=== PATIENT | female | born 1960 | race Caucasian/White ===

== ENCOUNTER 2019-12-04 11:38 | Emergency (ER) | payer MEDICARE, MEDICAID ==
[~2019-12-04] VITALS: Ht 162.6 cm; Wt 89.5 kg
[~2019-12-04 11:38] MED LIST: ACET325T57 PO; ACYC400T PO; ASPI-611 PO; ATOR20TA66 PO; CALC-1197 PO; CETI10TA15 PO; LISI40TA4 PO; LYSI500T3 PO; METF-950 PO; SALM1CAP4 PO; WALKERFR; ZOLP10TA5 PO
[2019-12-04 11:42] VITALS: BP 117/74
[2019-12-04 12:49] LABS: HEMOGLOBIN 14.6 g/dl (12.0-16.0); LYMPHOCYTES # (AUTO) 0.3 X10'3 (1.1-4.8); MEAN CORPUSCULAR HEMOGLOBIN 32.9 PG (27.0-31.0); MEAN CORPUSCULAR VOLUME 95.2 FL (78-98); WHITE BLOOD COUNT 3.6 X10'3 (4.5-11.0)
[2019-12-04 12:50] LABS: BASOPHILS % (AUTO) 0.4 % (0-1); EOSINOPHILS % (AUTO) 0.5 % (0-6); HEMATOCRIT 42.1 % (35.0-45.0); LYMPHOCYTES % (AUTO) 8.7 % (21-51); MEAN CORPUSCULAR HGB CONC 34.6 g/dL (33.0-36.5); MEAN PLATELET VOLUME 6.6 FL (7.4-10.4); MONOCYTES # (AUTO) 0.6 X10'3 (0-0.9); MONOCYTES % (AUTO) 16.6 % (2-12); NEUTROPHILS # (AUTO) 2.7 X10'3 (1.8-7.7); NEUTROPHILS % (AUTO) 73.8 % (42-75); PLATELET COUNT 231 X10'3 (140-440); RED BLOOD COUNT 4.43 X10'6 (4.20-5.60); RED CELL DISTRIBUTION WIDTH 13.5 % (11.5-14.5)
[2019-12-04 12:56] LABS: PARTIAL THROMBOPLASTIN TIME 30 SECONDS (22-32)
[2019-12-04 13:05] LABS: ALANINE AMINOTRANSFERASE 33 U/L (12-78); ALBUMIN 4.1 G/DL (3.4-5.0); ALBUMIN/GLOBULIN RATIO 1.3 (1.1-1.5); ALKALINE PHOSPHATASE 90 IU/L (46-116); ANION GAP 11 (8-16); ASPARTATE AMINO TRANSFERASE 25 U/L (10-37); BILIRUBIN,TOTAL 0.4 MG/DL (0.1-1.0); BLOOD UREA NITROGEN 9 MG/DL (7-18); BUN/CREATININE RATIO 8.1 (6.6-38.0); CALCIUM 8.6 MG/DL (8.5-10.1); CHLORIDE 100 MMOL/L (99-107); CREATININE 1.11 MG/DL (0.40-0.90); GLUCOSE 116 MG/DL (70-104); POTASSIUM 4.1 MMOL/L (3.5-5.1); SODIUM 132 MMOL/L (135-145); TOTAL CARBON DIOXIDE 20.9 MMOL/L (24-32); TOTAL PROTEIN 7.2 G/DL (6.4-8.2); eGFR 50 ML/MIN
[2019-12-04] MEDS ORDERED: GUAI120L55 PO (13:36)
[2019-12-04] MEDS ORDERED: BENZ-16 PO (13:36)
== END 2019-12-04 13:49 | disposition home or self-care (01) ==
LOC: ER 11:40
DX: J11.1 Influenza due to unidentified influenza virus with other respiratory manifestations (principal); R51 Headache; R05 Cough; I10 Essential (primary) hypertension; E11.9 Type 2 diabetes mellitus without complications; I27.20 Pulmonary hypertension, unspecified; Z90.710 Acquired absence of both cervix and uterus; Z98.890 Other specified postprocedural states; Z98.51 Tubal ligation status; Z88.5 Allergy status to narcotic agent; Z88.6 Allergy status to analgesic agent; Z79.82 Long term (current) use of aspirin; Z79.899 Other long term (current) drug therapy
CPT/HCPCS: 71045; 80053; 83880; 84145; 85025; 85610; 85730; 93005; 99284

== ENCOUNTER 2021-05-06 10:17 | Day surgery (SDC) | payer MEDICARE, MEDICAID ==
[~2021-05-06] VITALS: Ht 162.6 cm; Wt 84.5 kg
[~2021-05-06 10:17] MED LIST changes: +ACYC-126 PO; -ACYC400T PO; -CALC-1197 PO; +CALC-1215 PO; +GUAI120L55 PO; +LISI40TA13 PO; -LISI40TA4 PO
[2021-05-06 10:37] VITALS: BP 147/109
[2021-05-06] MEDS ORDERED: LIDOcaine Viscous 15ml cup ONE (11:19)
[2021-05-06] MEDS ORDERED: fentaNYL/PF 50MCG/1 ML 2ML syringe ONE (11:19)
[2021-05-06] MEDS ORDERED: MIDAZolam 1 MG/ML 5ML VIAL ONE (11:19)
[2021-05-06 11:55] VITALS: BP 95/53
[2021-05-06 12:05] VITALS: BP 111/57
[2021-05-06 12:15] VITALS: BP 115/73
[2021-05-06 12:25] VITALS: BP 111/57
[2021-05-06] MEDS ORDERED: CHOL20002 PO (12:29)
[2021-05-06] MEDS ORDERED: METF-900 PO (12:30)
[2021-05-06] MEDS ORDERED: ATOR10TA70 PO (12:30)
[2021-05-06] MEDS ORDERED: OMEP20TA23 PO (12:31)
[2021-05-06] MEDS ORDERED: LACT1CAP65 PO (12:32)
== END 2021-05-06 12:50 | disposition home or self-care (01) ==
LOC: GI LAB 10:17
PROVIDERS: ATTEND Internal Medicine Gastroenterology
DX: R13.10 Dysphagia, unspecified (principal); K29.50 Unspecified chronic gastritis without bleeding; K21.00 Gastro-esophageal reflux disease with esophagitis, without bleeding; K44.9 Diaphragmatic hernia without obstruction or gangrene; I27.20 Pulmonary hypertension, unspecified; G62.9 Polyneuropathy, unspecified; I73.00 Raynaud's syndrome without gangrene; Z72.89 Other problems related to lifestyle; Z88.8 Allergy status to other drugs, medicaments and biological substances; Z88.5 Allergy status to narcotic agent; Z91.09 Other allergy status, other than to drugs and biological substances
CPT/HCPCS: 43239; G0500; J2250; J3010; J7040; 99152; A4620

== ENCOUNTER 2021-09-26 15:24 | Emergency (ER) | payer MEDICARE, MEDICAID ==
[~2021-09-26] VITALS: Ht 165.1 cm; Wt 76.0 kg
[~2021-09-26 15:24] MED LIST changes: -ACET325T57 PO; -ACYC-126 PO; -ASPI-611 PO; +ATOR10TA70 PO; -ATOR20TA66 PO; -CALC-1215 PO; +CHOL20002 PO; -GUAI120L55 PO; +LACT1CAP65 PO; +METF-900 PO; -METF-950 PO; +OMEP20TA23 PO; -SALM1CAP4 PO; -WALKERFR; -ZOLP10TA5 PO
[2021-09-26] MEDS ORDERED: diltiazem 5mg/ml 5ml inj. IV ONE (15:45)
[2021-09-26 16:32] LABS: ALANINE AMINOTRANSFERASE 20 U/L (12-78); ALBUMIN 4.2 G/DL (3.4-5.0); ALBUMIN/GLOBULIN RATIO 1.1 (1.1-1.5); ALKALINE PHOSPHATASE 83 IU/L (46-116); ANION GAP 14 (8-16); ASPARTATE AMINO TRANSFERASE 12 U/L (10-37); BILIRUBIN,TOTAL 0.5 MG/DL (0.1-1.0); BLOOD UREA NITROGEN 31 MG/DL (7-18); BUN/CREATININE RATIO 20.8 (6.6-38.0); CALCIUM 9.5 MG/DL (8.5-10.1); CHLORIDE 102 MMOL/L (99-107); CREATININE 1.49 MG/DL (0.40-0.90); GLUCOSE 118 MG/DL (70-104); POTASSIUM 4.6 MMOL/L (3.5-5.1); SODIUM 139 MMOL/L (135-145); TOTAL CARBON DIOXIDE 23.1 MMOL/L (24-32); TOTAL PROTEIN 8.1 G/DL (6.4-8.2); eGFR 36 ML/MIN
[2021-09-26 16:38] LABS: BASOPHILS # (AUTO) 0.1 X10'3 (0-0.2); BASOPHILS % (AUTO) 0.8 % (0-1); EOSINOPHILS # (AUTO) 0.3 X10'3 (0-0.9); EOSINOPHILS % (AUTO) 2.7 % (0-6); HEMATOCRIT 42.2 % (35.0-45.0); HEMOGLOBIN 14.8 g/dl (12.0-16.0); LYMPHOCYTES # (AUTO) 1.3 X10'3 (1.1-4.8); LYMPHOCYTES % (AUTO) 12.8 % (21-51); MEAN CORPUSCULAR HEMOGLOBIN 32.9 PG (27.0-31.0); MEAN CORPUSCULAR HGB CONC 35.1 g/dL (33.0-36.5); MEAN CORPUSCULAR VOLUME 93.7 FL (78-98); MEAN PLATELET VOLUME 6.5 FL (7.4-10.4); MONOCYTES # (AUTO) 0.7 X10'3 (0-0.9); MONOCYTES % (AUTO) 6.7 % (2-12); NEUTROPHILS # (AUTO) 7.9 X10'3 (1.8-7.7); PLATELET COUNT 449 X10'3 (140-440); RED BLOOD COUNT 4.51 X10'6 (4.20-5.60); RED CELL DISTRIBUTION WIDTH 13.2 % (11.5-14.5); WHITE BLOOD COUNT 10.2 X10'3 (4.5-11.0)
[2021-09-26] MEDS: metoprolol tartrate 1mg/ml inj IV SCH ×3 (16:40→17:42)
[2021-09-26] MEDS ORDERED: normal saline 1000ml 1,000 ML IV ONE (16:45)
[2021-09-26] MEDS ORDERED: propofol 10mg/ml 20ml vial IV ONE (18:05)
[2021-09-26] MEDS ORDERED: metoprolol tartrate 1mg/ml inj IV SCH (20:15)
[2021-09-26] MEDS ORDERED: sotalol 80mg tablet PO ONE (20:35)
[2021-09-26] MEDS ORDERED: SOTA80TA73 PO (20:36)
[2021-09-26 22:00] VITALS: BP 111/70
== END 2021-09-26 22:02 | disposition home or self-care (01) ==
LOC: ER 15:24
DX: I48.20 Chronic atrial fibrillation, unspecified (principal); R06.02 Shortness of breath; I10 Essential (primary) hypertension; E11.9 Type 2 diabetes mellitus without complications; F41.9 Anxiety disorder, unspecified; Z90.710 Acquired absence of both cervix and uterus; Z98.51 Tubal ligation status; Z90.89 Acquired absence of other organs; Z98.890 Other specified postprocedural states; Z72.89 Other problems related to lifestyle; Z88.5 Allergy status to narcotic agent; Z88.8 Allergy status to other drugs, medicaments and biological substances; Z79.899 Other long term (current) drug therapy
CPT/HCPCS: 36415; 71045; 80053; 83735; 83880; 84484; 85025; 92960; 93005; 94799; 96361; 96374; 96375; 96376; 99285; J2704; J7030; 94760; 99152; J3490

== ENCOUNTER 2025-01-03 11:41 | Day surgery (SDC) | payer OTHER, MEDICAID ==
[2024-12-30 15:56] LABS: BASOPHILS # (AUTO) 0.1 X10'3 (0-0.2); BASOPHILS % (AUTO) 0.5 % (0-1); EOSINOPHILS # (AUTO) 0.2 X10'3 (0-0.9); EOSINOPHILS % (AUTO) 2.3 % (0-6); HEMATOCRIT 44.3 % (35.0-45.0); HEMOGLOBIN 14.7 g/dl (12.0-16.0); LYMPHOCYTES # (AUTO) 1.4 X10'3 (1.1-4.8); LYMPHOCYTES % (AUTO) 13.5 % (21-51); MEAN CORPUSCULAR HEMOGLOBIN 33.2 PG (27.0-31.0); MEAN CORPUSCULAR HGB CONC 33.2 g/dL (33.0-36.5); MEAN PLATELET VOLUME 6.8 FL (7.4-10.4); MONOCYTES # (AUTO) 0.6 X10'3 (0-0.9); NEUTROPHILS # (AUTO) 7.8 X10'3 (1.8-7.7); NEUTROPHILS % (AUTO) 77.7 % (42-75); PLATELET COUNT 354 X10'3 (140-440); RED BLOOD COUNT 4.43 X10'6 (4.20-5.60); RED CELL DISTRIBUTION WIDTH 13.5 % (11.5-14.5)
[2024-12-30 16:04] LABS: APTT 31 SECONDS (22-32); INR 1.1 INR; PROTHROMBIN TIME 11.3 SECONDS (9.0-12.0)
[2024-12-30 16:14] LABS: ANION GAP 9 (8-16); BLOOD UREA NITROGEN 15 MG/DL (7-18); CALCIUM 9.3 MG/DL (8.5-10.1); CHLORIDE 103 MMOL/L (99-107); CHOL/HDL RATIO 3.1 (0.00-4.99); CHOLESTEROL 187 MG/DL (0-200); CREATININE 0.94 MG/DL (0.40-0.90); GLUCOSE 108 MG/DL (70-104); HDL CHOLESTEROL 60 MG/DL (35-60); LDL CHOLESTEROL 94 MG/DL (50-100); POTASSIUM 4.8 MMOL/L (3.5-5.1); SODIUM 136 MMOL/L (135-145); TOTAL CARBON DIOXIDE 23.9 MMOL/L (24-32); TRIGLYCERIDES 227 MG/DL (20-135); eGFR 60 ML/MIN
[2025-01-03] VITALS (10 sets, daily range): BP systolic 127–139; BP diastolic 81–103; PULSE 69–110; RESP 16; TEMP 98; O2SAT 97–99
[~2025-01-03] VITALS: Ht 162.6 cm; Wt 89.4 kg
[~2025-01-03 11:41] MED LIST changes: +SOTA80TA73 PO
[2025-01-03] MEDS ORDERED: LUTE20CA PO (12:47)
[2025-01-03] MEDS ORDERED: FISH1CAP15 PO (12:47)
[2025-01-03] MEDS ORDERED: APIX5TAB3 PO (12:47)
[2025-01-03] MEDS ORDERED: SOTA80TA PO (12:47)
[2025-01-03] MEDS ORDERED: CYAN500T71 PO (12:47)
[2025-01-03] MEDS ORDERED: SILD20TA14 PO (12:47)
[2025-01-03] MEDS ORDERED: MULT-1085 PO (12:47)
[2025-01-03] MEDS ORDERED: UBIQ100C2 PO (12:47)
[2025-01-03] MEDS ORDERED: GLUC500T12 PO (12:47)
[2025-01-03] MEDS: MIDAZolam 1mg/ml 10ml vial IV ONE (13:46)
[2025-01-03] MEDS: fentaNYL/PF 50MCG/1 ML 2ML syringe IV ONE (13:46)
[2025-01-03] MEDS: normal saline 1000ml 1,000 ML IV SCH (13:47)
== END 2025-01-03 15:25 | disposition home or self-care (01) ==
LOC: SSTAY O 11:41
PROVIDERS: ATTEND Student in an Organized Health Care Education/Training Program
DX: I48.0 Paroxysmal atrial fibrillation (principal); I10 Essential (primary) hypertension; I27.20 Pulmonary hypertension, unspecified; G47.33 Obstructive sleep apnea (adult) (pediatric); J45.909 Unspecified asthma, uncomplicated; M35.00 Sjogren syndrome, unspecified; Z98.890 Other specified postprocedural states; Z79.899 Other long term (current) drug therapy; E78.5 Hyperlipidemia, unspecified; E11.9 Type 2 diabetes mellitus without complications; M19.90 Unspecified osteoarthritis, unspecified site; G47.30 Sleep apnea, unspecified
CPT/HCPCS: 36415; 80048; 80061; 82948; 85025; 85610; 85730; 92960; J2250; J3010; J7030